=== PATIENT | male | born 1950 | race Caucasian/White ===

== ENCOUNTER → 2017-04-13 12:27 | Outpatient (CLI) | payer MEDICAID ==
[2015-03-11 12:51] VITALS: BMI 35.2
[~2017-04-13 12:27] MED LIST: AMBIEN10 MG PO; BAYER CHEWABLE81 MG PO; CARDIZEM CD180 MG PO; COLACE100 MG PO; COUMADIN5 MG PO; GABAPENTIN100 MG PO; HYDROCODON-ACE1 EAC7 PO; HYTRIN5 MG PO; OMEGA 3 FISH OI1 CAP PO; POTASSIUM CHLO10 ME1 PO; PREVACID15 MG PO; PRINIVIL10 MG PO; ROBAXIN500 MG PO; STERAPRED DS 1210 MG PO; TRIAMCINOLONE A17 GM NASAL; ZYLOPRIM100 MG PO
== END | disposition home or self-care (01) ==
LOC: D.MRI 12:27
DX: M25.572 Pain in left ankle and joints of left foot (principal)

== ENCOUNTER 2017-05-31 09:35 | Day surgery (SDC) | payer MEDICARE, OTHER ==
[~2017-05-31] VITALS: Ht 172.7 cm; Wt 106.8 kg
--- NOTE | ~2017-05-31 | OP ---
PATIENT NAME: MARY REBOLLAR MEDICAL RECORD: [id number] :54 LOCATION:[facility] ADMISSION DATE: SURGEON: HONEY MOTT DO DATE OF OPERATION: 05/31/2017 PROCEDURE: EGD with biopsies. INDICATIONS FOR PROCEDURE: Heartburn and dysphagia. SCOPE: Olympus video gastroscope. MEDICATIONS: Propofol 250 mg IV per anesthesia. ESTIMATED BLOOD LOSS: Minimal. COMPLICATIONS: None. FINDINGS: Informed consent was given. The patient was made comfortable with the above medication. After reaching an adequate level of sedation by slow IV push, the patient was placed on his left side. The endoscope was advanced under direct visualization through the mouth to the second portion of the duodenum. The hypopharynx and cricopharyngeus, upper, middle, and lower thirds of the esophagus appeared normal. At the GE junction, there were breaks in the Z-line consistent with LA class B reflux-induced esophagitis. In one of these breaks, there was a superficial linear esophageal ulcer without bleeding stigmata. Multiple cold forceps biopsies were taken from this site to rule out the presence of [place]'s esophagus. The endoscope was advanced beyond the GE junction into the stomach and retroflexed to view the cardia where a very small sliding hiatal hernia was present. The fundus and body of the stomach appeared normal. The endoscope was then unretroflexed and advanced down to the antrum and prepyloric region, which also appeared normal. Multiple cold forceps biopsies were taken to submit for histology and to rule out H pylori. The endoscope was advanced beyond the pylorus into the duodenum where the bulb and second portion of the duodenum appeared normal. The endoscope was then withdrawn from the patient. The patient tolerated the procedure well and there were no complications. IMPRESSION: 1. LA class B reflux-induced esophagitis. 2. A single superficial linear ulceration present at the GE junction, likely related to reflux. 3. Small sliding hiatal hernia. PLAN AND RECOMMENDATIONS: 1. Discharge home when recovery parameters are met. 2. Follow up biopsy specimen results. 3. Increase proton pump inhibitor therapy to 40 mg equivalent daily for 8 weeks regarding the ulceration. After this time, medication can be reduced down to 20 mg daily or to an H2 garfield for reflux. 4. Proceed with colonoscopy as scheduled. TRANSINT:[id number] Voice Confirmation ID: [id number] DOCUMENT ID: [id number] OPERATIVE REPORT [id number] MARY REBOLLAR NATHAN A DO CC: [id number] DICTATION DATE: 05/31/17 1242 SALON/SPA MANAGER: 05/31/17 1316 [facility] [address] [id number]
[2017-05-31 10:31] VITALS: BP 143/82; Ht 172.7 cm; Wt 106.8 kg
[2017-05-31 11:58] LABS: HEMATOCRIT 36.2 % (42.0-54.0); HEMOGLOBIN 12.5 g/dL (13.5-17.5); MCH 32.3 pg (26.0-34.0); MCHC 34.5 g/dL (31.0-37.0); MCV 93.5 fL (80.0-100.0); MEAN PLATELET VOLUME 8.6 fL (7.4-10.4); RBC 3.87 10x6/uL (4.20-6.10); RDW 12.5 % (11.5-14.5)
== END 2017-05-31 14:00 | disposition home or self-care (01) ==
LOC: D.OPS 09:35
PROVIDERS: Anesthesiology
DX: K29.50 Unspecified chronic gastritis without bleeding (principal); K21.0 Gastro-esophageal reflux disease with esophagitis; K44.9 Diaphragmatic hernia without obstruction or gangrene; K22.10 Ulcer of esophagus without bleeding; Z01.812 Encounter for preprocedural laboratory examination

== ENCOUNTER 2017-06-07 10:42 | Day surgery (SDC) | payer MEDICARE, OTHER ==
[~2017-06-07] VITALS: Ht 172.7 cm; Wt 104.5 kg
--- NOTE | ~2017-06-07 | OP ---
PATIENT NAME: MARY REBOLLAR MEDICAL RECORD: [id number] :54 LOCATION:[facility] ADMISSION DATE: SURGEON: HONEY MOTT DO DATE OF OPERATION: 06/07/2017 PROCEDURE: Colonoscopy with polypectomy. INDICATIONS FOR PROCEDURE: Constipation and lower abdominal pain. SCOPE: Olympus video pediatric colonoscope. MEDICATIONS: Propofol 550 mg IV per anesthesia. WITHDRAWAL TIME: 19 minutes. ESTIMATED BLOOD LOSS: Minimal. COMPLICATIONS: None. FINDINGS: Informed consent was given. The patient was made comfortable with the above medication. After reaching an adequate level of sedation by slow IV push, the patient was placed on his left side. A digital rectal examination was performed and was normal. The endoscope was then advanced under direct visualization through the rectum to the terminal ileum. The endoscope was slowly withdrawn and mucosa was carefully examined. The prep quality was good. In the ascending colon, there was a single polyp which was benign appearing and sessile and measuring approximately 7-8 mm in diameter. It was removed using hot snare in 1 piece and completely retrieved. In the transverse colon and descending colon, there were 2 more polyps which were benign-appearing and sessile. They both measured approximately 3-4 mm in diameter. They were both removed using hot forceps in 1 piece and completely retrieved. There was evidence of mild diverticulosis in a scattered fashion throughout difficult segments of the bowel. There was no evidence of diverticulitis associated with this. Retroflexion was performed in the rectum with visualization of prior intervention in the form of a hemorrhoidectomy. There were no internal hemorrhoids visualized on today's examination. The endoscope was then withdrawn from the patient. The patient tolerated the procedure well and there were no complications. IMPRESSION: 1. Three polyps as described above, removed using hot snare and hot forceps. 2. Mild diverticulosis involving different segments of the colon. PLAN AND RECOMMENDATIONS: 1. Discharge home when recovery parameters are met. 2. High fiber diet. 3. Supplement diet with Metamucil 1-2 tablespoons daily. 4. We will initiate prior authorization for Movant[employer] regarding the likely opioid-induced constipation. 5. Continue current medications. 6. Follow up biopsy specimen results. 7. Recall colonoscopy in 3 years. TRANSINT:[id number] Voice Confirmation ID: [id number] DOCUMENT ID: [id number] OPERATIVE REPORT [id number] MARY REBOLLARHONEY LAWTON DO at 0951 CC: [id number] DICTATION DATE: 06/07/17 1330 PUZZLE ASSEMBLER: 06/07/17 1420 [facility] 06/07/17 [id number] [place] [address]
[2017-06-07 11:42] VITALS: BP 146/87; Ht 172.7 cm; Wt 104.5 kg
[2017-06-07 11:51] LABS: HEMATOCRIT 37.5 % (42.0-54.0); HEMOGLOBIN 13.2 g/dL (13.5-17.5); MCH 32.7 pg (26.0-34.0); MCHC 35.2 g/dL (31.0-37.0); MCV 92.8 fL (80.0-100.0); MEAN PLATELET VOLUME 8.8 fL (7.4-10.4); RBC 4.04 10x6/uL (4.20-6.10); RDW 12.4 % (11.5-14.5); WBC 4.6 10x3/uL (4.8-10.8)
[2017-06-07 12:23] LABS: CALC OSMOLALITY 276 mosm/kg (275-300); CALCIUM 8.8 mg/dL (8.5-10.1); CARBON DIOXIDE 28.6 mmol/L (21.0-32.0); CHLORIDE - SERUM 100 mmol/L (98-107); CREATININE - SERUM 0.9 mg/dL (0.6-1.3); GLUCOSE 103 mg/dL (74-106); SODIUM 139 mmol/L (136-145); UREA NITROGEN 9 mg/dL (7-18); eGFR NON AFRICAN AMERICAN 90 mL/min (90-120)
== END 2017-06-07 14:48 | disposition home or self-care (01) ==
LOC: D.OPS 10:42
PROVIDERS: Anesthesiology
DX: R10.30 Lower abdominal pain, unspecified (principal); K59.00 Constipation, unspecified; D12.2 Benign neoplasm of ascending colon; D12.4 Benign neoplasm of descending colon; D12.3 Benign neoplasm of transverse colon; J45.909 Unspecified asthma, uncomplicated; I10 Essential (primary) hypertension; I48.91 Unspecified atrial fibrillation; K21.9 Gastro-esophageal reflux disease without esophagitis; J44.9 Chronic obstructive pulmonary disease, unspecified; G47.30 Sleep apnea, unspecified; Z01.812 Encounter for preprocedural laboratory examination

== ENCOUNTER 2017-06-23 09:00 | Day surgery (SDC) | payer MEDICARE, OTHER ==
[2017-06-22 14:38] LABS: HEMATOCRIT 37.7 % (42.0-54.0); HEMOGLOBIN 13.1 g/dL (13.5-17.5); MCH 32.4 pg (26.0-34.0); MCHC 34.7 g/dL (31.0-37.0); MCV 93.3 fL (80.0-100.0); MEAN PLATELET VOLUME 8.9 fL (7.4-10.4); RBC 4.04 10x6/uL (4.20-6.10); WBC 8.1 10x3/uL (4.8-10.8)
--- NOTE | ~2017-06-23 | OP ---
PATIENT NAME: MARY REBOLLAR MEDICAL RECORD: [id number] :54 LOCATION:[facility] ADMISSION DATE: SURGEON: JENNY BOYD DPM DATE OF OPERATION: 06/23/2017 PREOPERATIVE DIAGNOSES: 1. Arthritis, left ankle. 2. Rupture left ATF. 3. Possible rupture CF ligament. POSTOPERATIVE DIAGNOSES: 1. Arthritis of left ankle. 2. Rupture ATF. 3. Bone fragment, lateral anterior gutter. PROCEDURES: 1. Left ankle scope. 2. Left ATF repair with bone fragment removal. ANESTHESIA: Preoperative popliteal block per the anesthesia department as well as general anesthesia intraoperatively. HEMOSTASIS: Left thigh tourniquet at 350 mmHg. PREOPERATIVE DETAILS: The patient was taken to the OR, placed on the operating table in supine position, this was followed by induction of general anesthesia. The left extremity was then prepped and draped in the usual aseptic technique followed by exsanguination and inflation of tourniquet. A 15-blade was used to create 2 small stab incisions on the anterior lateral and anterior medial aspect of the left ankle. The incision was deepened down bluntly with a blunt hemostat. The blunt trocar and cannula were then introduced in the lateral portal with the camera being introduced into that portal. Initial inspection showed significant chondromalacia of the anterior distal tibia as well as arthritis of the talar dome as well as spurring on the anterior medial aspect of the cartilaginous surface on the talus. There was also noted to be significant capsulitis and synovitis and synovial shaver was introduced in the medial portal where debridement was performed, which was extensive, both of capsular as well as chondromalacial tissue as well as the resection of the bone spur on the anterior medial aspect of the talar dome, just anterior to the cartilaginous surface, the portals were switched introducing the camera medial and the synovial shaver laterally, continued extensive debridement was performed. The AITF ligament was intact. The ATF ligament was not, it was inspected in the lateral gutter, also the ankle was put into inversion stress which did not show any talar tilt indicating the CF ligament was intact. The scope and camera equipment were then removed. PROCEDURE #2 ATF repair with a modified Brostrom and bone fragment removal in the lateral gutter. The lateral stab incision over the anterolateral aspect of the ankle was lengthened distal and hockey J-shape wrapping around the contour of the fibula. The incision deepened down through subcutaneous tissue being sure to avoid all vital structures. The joint capsule was then punctured and incised. The ATF ligament was inspected, which was very frayed. There was also noted to be a large fragment on the anterior aspect of the fibula, which was excised, it measured approximately 1 cm in diameter. At this time, utilizing the Arthrex internal brace technique, the ligament was recreated. Following OPERATIVE REPORT [id number] MARY REBOLLAR that there was excellent range of motion of the joint, instability of the joint itself. This was followed by performance of a modified Brostrom technique utilizing the extensor retinaculum. The wound was flushed. The subcutaneous tissue was repaired with 4-0 Rapide and the skin was closed with 4-0 Rapide in a subcuticular technique followed by Dermabond. The incision on the anterior medial aspect of the ankle was also closed with 4-0 Rapide in a simple interrupted technique followed by Dermabond, Adaptic, 4 x 4 and Conform were used to dress the wound followed by application of a modified [place] compression dressing. Tourniquet was deflated. POSTOPERATIVE DETAILS: The patient tolerated the procedure well and left the OR with vital signs stable and vascular status. The patient was transported to recovery per anesthesia in stable condition. TRANSINT:[id number] Voice Confirmation ID: [id number] DOCUMENT ID: [id number] JENNY BOYD DPM at 1007 CC: [id number] DICTATION DATE: 06/23/17 1420 BANK NOTE DESIGNER: 06/23/17 1458 [facility] 06/23/17 [facility] [address] [place] [address]
[~2017-06-23 09:00] MED LIST changes: -CARDIZEM CD180 MG PO; +CARDIZEM CD360 MG PO; -GABAPENTIN100 MG PO; +HCTZ25 MG PO; +HYDROCODONE-APA1 TAB PO; +KRILL OIL PO; +NEURONTIN600 MG PO; +NIASPAN500 MG PO; +POTASSIUM99 M1 PO; +PROAIR HFA8.5 GM INH; +PROSTA-STRONG; +PROTONIX40 MG PO; +ROBAXIN-750750 MG PO
[2017-06-23 10:30] VITALS: BP 122/71; BMI 35.5
== END 2017-06-23 17:00 | disposition home or self-care (01) ==
LOC: D.OPS 09:00 → D.PAN 11:00 → D.OPS 11:00
PROVIDERS: Anesthesiology
DX: M13.872 Other specified arthritis, left ankle and foot (principal); S93.492A Sprain of other ligament of left ankle, initial encounter; X58.XXXA Exposure to other specified factors, initial encounter; M24.072 Loose body in left ankle; Z01.812 Encounter for preprocedural laboratory examination

== ENCOUNTER → 2018-01-14 13:59 | Outpatient (CLI) | payer MEDICARE, OTHER | END | disposition home or self-care (01) | LOC: D.CT 13:59 | DX: R10.9 Unspecified abdominal pain (principal) ==

== ENCOUNTER → 2019-02-10 09:52 | Outpatient (CLI) | payer MEDICARE, OTHER ==
[~2019-02-10 09:52] MED LIST changes: +FAMVIR500 MG PO; +MEDROL DOSE PACK4 MG PO; +OMNICEF300 MG PO; +PROVENTIL/2.5 MG/3 M INH
--- NOTE | 2019-02-14 15:54 | EC ---
PATIENT:MARY REBOLLAR DATE OF SERVICE: 02/10/19 SEX: M MEDICAL RECORD: [id number] DATE OF : 54 [facility]ATION[facility] AGE OF PATIENT: 68 ADMISSION DATE: 02/10/19 REFERRING PHYSICIAN: INTERPRETING PHYSICIAN: LYN DAY MD ECHOCARDIOGRAM REPORT ECHO CHARGES 4 ECHO COMPLETE Date: 02/10/19 CLINICAL DIAGNOSIS: A-FIB H/O HTN ECHOCARDIOGRAPHIC MEASUREMENTS (adult normal given) AC root (d.<3.7cm) 3.2 cm LV Septum d (<1.2 cm> 1.2 cm Valve Excursion 1.9 cm LV Septum (systole) 1.5 cm Left Atria (s.<4.0cm> 3.7 cm LVPW d(<1.2cm) 0.9 cm RV (d.<2.3cm) 3.1 cm LVPW (sytole) 1.1 cm LV diastole(<5.6CM) 5.8 cm MV E-F(>70mm/sec) cm LV systole 4.5 cm LVOT Diameter 1.7 cm MV exc.(>10mm) cm Est.ejection fraction (50-75%) % DOPPLER: LVIT cm/sec A 61.0 cm/sec E 138 cm/sec LA cm/sec RVSP 38.2 mmHg LVOT 123 cm/sec AOP1/2T m/s Asc. Ao 253 cm/sec RVOT 63.0 cm/sec RA cm/sec PA 121 cm/sec AV Gradient Peak 26.0 mmHg AV Mean 13.0 mmHg AV Area 1.1 cm MV Gradient Peak 6.7 mmHg MV Mean 2.0 mmHg MV Area cm COMMENTS: OP - HC Consumer Loan Specialist: 1 CHARLY LAVERN Cargo Mate: 3 Dr. Arevalo TAPE# PACS Pericardial Effusion N DATE OF SERVICE: Adequate 2D, color flow imaging, spectral Doppler, and M-Mode No LVH. LV internal dimension is normal. Wall motion is normal. EF is greater than or equal to 55%. Aortic valve is tricuspid. No evidence of stenosis by Doppler interrogation. Left atrium is normal at 3.7 cm. Mitral valve shows no prolapse. Trace MR. Right-sided chambers are grossly normal. Trace TR. TRANSINT:[id number] Voice Confirmation ID: [id number] DOCUMENT ID: [id number] ECHOCARDIOGRAM REPORT [id number] MARY REBOLLAR GREGORY A MD at 1554 CC: [id number] DICTATION DATE: 02/14/19 1325 SAND BLASTER: 02/14/19 1352 [facility] CLI 02/10/19 [id number] [place] [address]
== END | disposition home or self-care (01) ==
LOC: D.HCCECHO 01-30 09:00
PROVIDERS: ATTEND Internal Medicine Interventional Cardiology
DX: I48.91 Unspecified atrial fibrillation (principal); I67.9 Cerebrovascular disease, unspecified

== ENCOUNTER 2019-03-19 13:59 | Emergency (ER) | payer MEDICARE, OTHER ==
[~2019-03-19] VITALS: Ht 172.7 cm; Wt 109.1 kg
[~2019-03-19 13:59] MED LIST changes: -FAMVIR500 MG PO; -MEDROL DOSE PACK4 MG PO; -OMNICEF300 MG PO; -PROVENTIL/2.5 MG/3 M INH
[2019-03-19 14:08] VITALS: Ht 172.7 cm; Wt 109.1 kg
[2019-03-19] MEDS ORDERED: OMNICEF300 MG PO (14:11)
[2019-03-19] MEDS ORDERED: PROVENTIL/2.5 MG/3 M INH (14:12)
[2019-03-19 15:09] LABS: BASOPHILS 0.2 % (0-2); EOSINOPHILS 1.6 % (0-7); HEMATOCRIT 34.5 % (42.0-54.0); HEMOGLOBIN 11.6 g/dL (13.5-17.5); IMMATURE GRANULOCYTES 0.2 % (0-5); MCHC 33.6 g/dL (31.0-37.0); MEAN PLATELET VOLUME 9.1 fL (7.4-10.4); RBC 3.52 10x6/uL (4.20-6.10); RDW 12.6 % (11.5-14.5); WBC 8.1 10x3/uL (4.8-10.8)
[2019-03-19 15:15] VITALS: BP 146/82
[2019-03-19 15:22] LABS: PLATELET COUNT 359 10x3/uL (130-400)
[2019-03-19 15:26] LABS: CALC OSMOLALITY 278 mosm/kg (275-300); CHLORIDE - SERUM 102 mmol/L (98-107); CREATININE - SERUM 0.7 mg/dL (0.6-1.3); GLUCOSE 104 mg/dL (74-106); POTASSIUM - SERUM 4.6 mmol/L (3.5-5.1); SODIUM 139 mmol/L (136-145); UREA NITROGEN 14 mg/dL (7-18); eGFR NON AFRICAN AMERICAN > 90 mL/min (90-120)
[2019-03-19 15:32] LABS: ALBUMIN 3.5 g/dL (3.4-5.0); ALKALINE PHOSPHATASE 64 U/L (46-116); ALT (SGPT) 51 U/L (10-68); BILIRUBIN - TOTAL 0.32 mg/dL (0.2-1.3); PROTEIN - SERUM 7.4 g/dL (6.4-8.2)
[2019-03-19] MEDS ORDERED: FAMVIR500 MG PO (16:33)
[2019-03-19] MEDS ORDERED: MEDROL DOSE PACK4 MG PO (16:33)
== END 2019-03-19 17:47 | disposition home or self-care (01) ==
LOC: D.ER 13:59
PROVIDERS: Emergency Medicine
DX: G51.0 Bell's palsy (principal); I11.9 Hypertensive heart disease without heart failure; I48.91 Unspecified atrial fibrillation; J44.9 Chronic obstructive pulmonary disease, unspecified; M54.9 Dorsalgia, unspecified; N40.0 Benign prostatic hyperplasia without lower urinary tract symptoms

== ENCOUNTER → 2019-11-17 07:52 | Outpatient (CLI) | payer MEDICARE, OTHER ==
[2019-03-19 14:08] VITALS: BMI 36.5
[~2019-11-17 07:52] MED LIST changes: +FAMVIR500 MG PO; +MEDROL DOSE PACK4 MG PO; +OMNICEF300 MG PO; +PROVENTIL/2.5 MG/3 M INH
== END | disposition home or self-care (01) ==
LOC: D.US 07:52
PROVIDERS: ATTEND Family Medicine
DX: R10.9 Unspecified abdominal pain (principal)

== ENCOUNTER → 2019-11-24 07:56 | Outpatient (CLI) | payer MEDICARE, OTHER ==
[2019-03-19 14:08] VITALS: BMI 36.5
--- NOTE | 2019-11-27 13:47 | EC ---
PATIENT:MARY REBOLLAR DATE OF SERVICE: 11/24/19 SEX: M MEDICAL RECORD: [id number] DATE OF : 54 LOCATION:[facility] AGE OF PATIENT: 69 ADMISSION DATE: 11/24/19 REFERRING PHYSICIAN: INTERPRETING PHYSICIAN: LYN DAY MD ECHOCARDIOGRAM REPORT ECHO CHARGES 4 ECHO COMPLETE Date: 11/24/19 CLINICAL DIAGNOSIS: HEART MURMUR ANGINA/AFIB/HTN ECHOCARDIOGRAPHIC MEASUREMENTS (adult normal given) AC root (d.<3.7cm) 3.4 cm LV Septum d (<1.2 cm> 1.3 cm Valve Excursion 1.4 cm LV Septum (systole) 1.6 cm Left Atria (s.<4.0cm> 4.8 cm LVPW d(<1.2cm) 1.5 cm RV (d.<2.3cm) 3.7 cm LVPW (sytole) 1.8 cm LV diastole(<5.6CM) 4.9 cm MV E-F(>70mm/sec) cm LV systole 2.9 cm LVOT Diameter 1.8 cm MV exc.(>10mm) 1.7 cm Est.ejection fraction (50-75%) % DOPPLER: LVIT cm/sec A 68.0 cm/sec E 108.0 cm/sec LA cm/sec RVSP 34 mmHg LVOT 114 cm/sec AOP1/2T m/s Asc. Ao 213 cm/sec RVOT 75 cm/sec RA cm/sec PA 123 cm/sec AV Gradient Peak 18.18mmHg AV Mean 9.46 mmHg AV Area 1.3 cm MV Gradient Peak 4.25 mmHg MV Mean 1.12 mmHg MV Area cm COMMENTS: Commissary Superintendent: 2 JAMISON NORMAN Yard Spotter: 3 Dr. Arevalo TAPE# PACS Pericardial Effusion N DATE OF SERVICE: Adequate 2-D, color-flow imaging, spectral Doppler, and M-mode. LVH is present. LV internal dimensions are normal. Wall motion is normal. EF is greater than or equal to 55%. Aortic valve is calcified with no restriction of leaflet motion. Peak gradient of 18 mmHg putting this in very mild range with mild AI present as well. Left atrium is dilated at 4.8 cm. Mitral valve shows no prolapse. Trace MR. Right-sided chambers are grossly normal. Mild TR. ECHOCARDIOGRAM REPORT [id number] MARY REBOLLAR TRANSINT:[id number] Voice Confirmation ID: [id number] DOCUMENT ID: [id number] LYN DAY MD at 1347 CC: [id number] DICTATION DATE: 11/24/19 1339 LAMINATION MACHINE OPERATOR: 11/24/19 2333 DEP CLI 11/24/19 [address] [address] [id number]
== END | disposition home or self-care (01) ==
LOC: D.HCCECHO 07:56
PROVIDERS: ATTEND Internal Medicine Cardiovascular Disease
DX: I25.119 Atherosclerotic heart disease of native coronary artery with unspecified angina pectoris (principal)

== ENCOUNTER → 2019-12-01 07:12 | Outpatient (CLI) | payer MEDICARE, OTHER ==
[2019-03-19 14:08] VITALS: BMI 36.5
== END | disposition home or self-care (01) ==
LOC: D.NM 07:12
PROVIDERS: ATTEND Family Medicine
DX: R10.9 Unspecified abdominal pain (principal)

== ENCOUNTER 2019-12-06 07:01 | Day surgery (SDC) | payer MEDICARE, OTHER ==
[~2019-12-06] VITALS: Ht 172.7 cm; Wt 106.6 kg
--- NOTE | ~2019-12-06 | HEMODYNAMI ---
PATIENT:MARY REBOLLAR MEDICAL RECORD: [id number] : 54 LOCATION:DAnthonyCAT ADMISSION DATE: 12/06/19 Generatedon:12/06/20199:35 Patient name: MARY REBOLLAR Patient #: [id number] SSN: [id number] : 1950 Date of study: 12/06/2019 Page: Of Hemodynamic Procedure Report Patient Data Patient Demographics Procedure consent was obtained First Name: MARY Gender: Male Last Name: SMOOTH : 1950 Middle Initial: A Age: 69 year(s) Patient #: [id number] Race: SSN: [id number] Additional ID: [id number] Contact details [address]: [address] [place] [address] rd State: [place] City: [place] Zip code: [address] Past Medical History Allergies Allergen Reaction Date Comments Reported Other allergy 12/06/2019 DARVON, PCN, MOLDS Admission Admission Data Admission Date: 12/06/2019 Admission Time: 7:01 Arrival Date: 12/06/2019 Arrival Time: 0:00 Admit Source: Other Insurance Payor: Medicare [facility] #: [id number] Height (in.): 68.11 BSA: 2.2 (m2) Height (cm.): 173 BMI: 35.75 (kg/m2) Weight (lbs.): 235.9 Weight (kg.): 107 Lab Results Lab Result Date: 12/06/2019 Lab Result Time: 0:00 Biochemistry Name Units Result Min Max BUN mg/dl 12 --(-*--)-- 7 18 Creatinine mg/dl 1 --(--*-)-- 0.6 1.3 eGFR ml/min 79.62607 *-(----)-- 90 120 NONAFRICAN CBC Name Units Result Min Max Hematocrit % 37.6 *-(----)-- 42 54 Hemoglobin g/dl 12.9 -*(----)-- 13.5 17.5 Procedure Procedure Types Cath Procedure Diagnostic Procedure [facility] w/Coronaries FFR/IVUS FFR Initial Sedation Charges Moderate Sedation up to 15 minutes PCI Procedure Hemochron ACT Test Procedure Description Procedure Date Procedure Date: 12/06/2019 Procedure Start Time: 9:15 Procedure End Time: 9:32 Procedure Staff Name Function Rodri Stout MD Performing Physician Laurie Abdi RT Scrub Romy Zepeda RT Monitor Blanca Knott RN Nurse Procedure Data Cath Procedure Fluoroscopy Diagnostic fluoroscopy Total fluoroscopy Time: 2.6 time: 2.6 min min Diagnostic fluoroscopy Total fluoroscopy dose: 571 dose: 571 mGy mGy Contrast Material Contrast Material Type Amount (ml) Isovue 300 77 Entry Location Entry Primary Successful Side Size Upsize Upsize Entry Closure Succes sful Closure Location (Fr) 1 (Fr) 2 (Fr) Remarks Device Remarks Femoral Right 5 Fr Exoseal artery Estimated blood loss: 5 ml Diagnostic catheters Device Type Used For End Catheter Placement MULTIPACK JL 4.0 5Fr Left Coronary catheter Angiography MULTIPACK 3DRC 5Fr Right Coronary catheter Angiography MULTIPACK Pigtail 5 Fr LV Angiography catheter Procedure Complications No complications Procedure Medications Medication Administration Route Dosage 0.9% NaCl I.V. 100 ml/hr Oxygen etCO2 Nasal cannula 2 l/min Lidocaine 2% added to field 20 Heparin Flush Bag added to field 2 bags (1000units/500ml NS) Versed I.V. 2 mg Fentanyl I.V. 50 mcg Versed I.V. 2 mg Fentanyl I.V. 50 mcg Fentanyl I.V. 50 mcg Heparin Bolus I.V. 2000 units Hemodynamics Rest BSA: 2.2 (m2) HGB: 12.9 (g/dl) O2 Consumption: Estimated: 256.58 (ml/min) O2 Con sumption indexed: Estimated:116.63 (ml/min/m) Heart Rate: 71 (bpm) Pressure Samples Time Site Value (mmHg) Purpose Heart Use Rate(bpm) 9:20 LV 124/16,20 Snapshot 63 9:20 LV 124/18,21 Snapshot 63 9:21 AO 107/69(91) Pullback 68 Gradients Valve Time Site Site 2 Mean SEP/DFP Peak To Heart Use 1 (mmHg) (sec/min) Peak Rate (mmHg) (bpm) Aortic 9:21 LV AO 14 18 68 107/69(91) Calculations Valve P-P Mean Valve Index Valve Source Name Gradient Area Flow (cm2) Aortic 14 14 Snapshots Pre Cath Intra NCS Post Cath Vital Signs Time Heart Resp SPO2 etCO2 NIBP Rhythm Pain Sedation Rate (ipm) (%) (mmHg) (mmHg) Status Level (bpm) 8:58:43 69 13 98 26.2 121/60(87) NSR 0 (11) 10(A) , No pain 9:03:10 66 14 96 10.4 113/71(86) NSR 0 (11) 10(A) , No pain 9:07:36 60 20 96 10.4 107/63(80) NSR 0 (11) 10(A) , No pain 9:12:02 59 23 97 10 108/55(85) SB 0 (11) 10(A) , No pain 9:17:01 66 12 97 38.2 Measuring NSR 0 (11) 10(A) , No pain 9:17:32 60 15 97 43.5 129/69(89) NSR 0 (11) 10(A) , No pain 9:22:00 60 10 96 34 125/71(90) NSR 0 (11) 9(A) , No pain 9:26:27 60 10 97 8.9 126/71(92) NSR 0 (11) 10(A) , No pain 9:30:57 62 12 97 38.2 127/72(93) NSR 0 (11) 10(A) , No pain Medications Time Medication Route Dose Verified Delivered Reason Notes Effectiveness by by 8:57:40 0.9% NaCl I.V. 100 Rodri Rios used for ml/hr [facility] Knott procedure MD ATWOOD 8:57:49 Oxygen etCO2 2 Rodri Rios used for Nasal l/min [facility] Knott procedure cannula MD ATWOOD 8:57:54 Lidocaine 2% added 20ml Rodri Mace for local to vial [facility] anesthetic field MD MANZO 8:57:57 Heparin Flush added 2 Rodri Mace used for Bag to bags ArgeliaEverton Stout procedure (1000units/500ml field MD MANZO NS) 9:06:16 Versed I.V. 2 mg Rodri Rodrigueza for sedation [facility] Knott MD RN 9:06:28 Fentanyl I.V. 50 Rodri Rodrigueza for sedation mcg [facility] Knott MD RN 9:11:36 Versed I.V. 2 mg Rodri Rios for sedation [facility] Knott MD RN 9:11:40 Fentanyl I.V. 50 Rodri Rodrigueza for sedation mcg [facility] Knott MD RN 9:16:33 Fentanyl I.V. 50 Rodri Rodrigueza for sedation mcg [facility] Knott MD RN 9:21:48 Heparin Bolus I.V. 2000 Rodri Rios for verifi ed units [facility] Knott anticoagulation with Dr. MD RAI Arevalo Procedure Log Time Note 7:57:42 Informed consent obtained and on chart 7:58:22 Diagnostic Cath Status : Elective 7:58:47 Arrival Date: 12/06/2019 12:00:00 AM 7:58:48 Admit Source: Other 7:58:54 Insurance Payor : Medicare 8:03:31 Procedure Status Elective Heart Cath (OP). 8:03:33 Time tracking: Regular hours (M-F 7:00 - 5:00) 8:03:38 Plan of Care:Hemodynamics will remain stable., Cardiac rhythm will remain stable., Comfort level will be maintained., Respiratory function will remain adequate., Patient/ family verbilizes understanding of procedure., Procedure tolerated without complication., Recovers from procedure without complications.. 8:03:50 H&P Date Dictated: 11/13/2019 Within 30 days and on chart.. 8:03:52 Pre-procedure instructions explained to patient. 8:03:52 Pre-op teaching completed and patient verbalized understanding. 8:03:59 Family unavailable. 8:04:00 Patient NPO since Midnight. 8:04:20 Patient allergic to Other allergyDARVON, PCN, MOLDS 8:04:25 Alarms reviewed by R. N. 8:04:26 Sharps counted by scrub and verified by R.N. 8:46:32 Lab Result : Creatinine 1 mg/dl 8:46:32 Lab Result : BUN 12 mg/dl 8:46:32 Lab Result : eGFR NONAFRICAN 79.34064 ml/min 8:46:32 Lab Result : Hemoglobin 12.9 g/dl 8:46:32 Lab Result : Hematocrit 37.6 % 8:47:54 Romy MENA(R) (CV) sent for patient. Start room use. 8:51:41 Patient received from Pre/Post Procedure Room to CCL 1 Alert and oriented. Tansferred to table in Supine position. 8:51:42 Warm blankets applied, and carlos hugger turned on for patient comfort. 8:51:43 Correct patient and procedure confirmed by team. 8:51:44 ECG and BP/O2 sat monitors applied to patient. 8:57:13 Vital chart was started 8:57:40 0.9% NaCl 100 ml/hr I.V. was administered by Blanca Knott RN; used for procedure; Verbal order read back and verified. 8:57:41 Baseline sample Acquired. 8:57:49 Oxygen 2 l/min etCO2 Nasal cannula was administered by Blanca Knott RN; used for procedure; Verbal order read back and verified. 8:57:54 Lidocaine 2% 20ml vial added to field was administered by Rodri Stout MD; for local anesthetic; Verbal order read back and verified. 8:57:55 Baseline sample Acquired. 8:57:57 Heparin Flush Bag (1000units/500ml NS) 2 bags added to field was administered by Rodri Stout MD; used for procedure; Verbal order read back and verified. 8:58:05 Rhythm: sinus rhythm 8:58:07 Full Disclosure recording started 8:58:15 Is the patient allergic to Iodine/contrast media? No. 8:58:58 Use device set Femoral Dx 8:59:00 ACIST Syringe (75211) opened to sterile field. 8:59:00 Bag Decanter (2001S) opened to sterile field. 8:59:01 Medline Cath Pack ([id number]) opened to sterile field. 8:59:03 ACIST Hand Control (32929) opened to sterile field. 8:59:04 ACIST Manifold (62240) opened to sterile field. 8:59:05 DIAGNOSTIC Multipack 5Fr catheter set ([id number]) opened to sterile field. 8:59:06 Tegaderm 4 x 4 (1626W) opened to sterile field. 8:59:09 EMERALD Guide Wire (617-294) opened to sterile field. 8:59:10 SHEATH 5FR Hull (AGO799) opened to sterile field. 8:59:40 Is patient on blood thinner?No 8:59:44 Patient diabetic? No. 8:59:47 ----Pre-sedation anethsthesia assessment.---- 8:59:51 Previous problem with sedation/anesthesia? No ? 8:59:54 Snore? Yes 8:59:56 Sleep apnea? Yes 9:00:00 Deviated septum? No 9:00:01 Opens mouth fully? Yes 9:00:02 Sticks out tongue? Yes 9:00:15 Airway obstruction? Yes ASTHMA 9:00:48 Dentures? No ? 9:00:54 Pre procedure: right dorsailis pedis pulse 1+ Palpable, but thready & weak; easily obliterated 9:01:03 IV patent on arrival in right antecubital with 0.9% NaCl at [facility]. 9:04:47 Right groin area was prepped with chlora-prep and draped in sterile fashion 9:04:54 Physician arrived 9:04:55 --------ALL STOP TIME OUT------ 9:04:56 Final Timeout: patient, procedure, and site verified with staff and physician. All members of the team are in agreement. 9:04:59 Right groin site verified by team. 9:05:06 Fire Safety Assessment: A--An alcohol-based skin anteseptic being used preoperatively., C--Open oxygen or nitrous oxide is being used., D--An ESU, laser, or fiber-optic light is being used. 9:05:11 Physical assessment completed. ASA score P 2 - A patient with mild systemic disease as per Rodri Stout MD. 9:05:18 2) 60-89 Mildly reduced kidney function, and other findings (as for stage 1) point to kidney disease. 9:05:23 Maximum allowable contrast dose (3.7 X eGFR X 0.75)219 ml. 9:05:32 Sedation plan: IV Moderate Sedation Medication:Versed, Fentanyl 9:06:16 Versed 2 mg I.V. was administered by Blanca Knott RN; for sedation; Verbal order read back and verified. 9:06:22 Stress Test: yes; abnormal INFERIOR AND APICAL 9:06:28 Fentanyl 50 mcg I.V. was administered by Blanca Knott RN; for sedation; Verbal order read back and verified. 9:06:42 Lab results completed and on chart. 9:11:36 Versed 2 mg I.V. was administered by Blanca Knott RN; for sedation; Verbal order read back and verified. 9:11:40 Fentanyl 50 mcg I.V. was administered by Blanca Knott RN; for sedation; Verbal order read back and verified. 9:12:10 Zero performed for pressure channel P1 9:15:09 Zero performed for pressure channel P1 9:15:25 Procedure started. 9:15:31 Local anesthetic to right femoral artery with Lidocaine 2% by Rodri Stout MD.INITIAL ACCESS ONLY 9:15:58 A 5 Fr sheath was inserted into the Right Femoral artery 9:16:18 Risk of Mortality: 0.3 9:16:23 Risk of blood transfusion: 0.1 9:16:27 Risk of LISA: 0.5 9:16:33 Fentanyl 50 mcg I.V. was administered by Blanca Knott RN; for sedation; Verbal order read back and verified. 9:16:40 A MULTIPACK JL 4.0 5Fr catheter was advanced over the wire and used for Left Coronary Angiography. 9:16:53 Patient Height : 68.11 inches 9:16:57 Patient Weight : 235.9 lbs 9:17:47 LCA angiography performed. 9:18:05 Injector settings: Ml/sec: 3, Volume: 6, 9:18:25 Catheter removed. 9:18:34 A MULTIPACK 3DRC 5Fr catheter was advanced over the wire and used for Right Coronary Angiography. 9:19:43 RCA angiography performed. 9:19:50 Injector settings: Ml/sec: 3, Volume: 6, 9:19:53 Catheter removed. 9:20:40 A MULTIPACK Pigtail 5 Fr catheter was advanced over the wire and used for LV Angiography. 9:21:12 LV hemodynamics recorded. 9:21:19 EF : 55 % 9:21:23 LV gram done using BYRNES 9:21:27 Catheter removed. 9:21:33 Proceeding to intervention. 9:21:48 Heparin Bolus 2000 units I.V. was administered by Blanca Knott RN; for anticoagulation; verified with Dr. Arevalo Verbal order read back and verified. 9:22:06 Daniel Verrata Plus pressure wire (50117C) opened to sterile field. 9:23:31 THE JL 4.0 IS REINSERTED TO USE THE IFR WIRE. 9:25:04 FFR/IFR wire advanced. 9:26:35 mLAD lesion measured at 1.01 with IFR 9:27:00 EXOSEAL 5Fr (EX500) opened to sterile field. 9:27:17 Catheter removed. 9:27:30 Wire removed. 9::57 Sheath removed intact; hemostasis achieved with Exoseal to the Right Femoral artery. 9:28:12 Procedure ended.(Physican Out) 9:28:31 Contrast amount:Isovue 300 77ml. 9::41 Fluoroscopy time 02.60 minutes. 9::47 Fluoroscopy dose: 571 mGy 9::47 Flurop Dose total: 571 9:: Dose Area Product 72690 mGy/cm. 9:29:05 Maximum allowable dose exceeded? No. 9:29:09 Sharps counted by scrub and verified by R.N. 9:29:12 Insertion/operative site no bleeding no hematoma. 9:29:17 Post-op/insertion site Right Femoral artery dressed using a 4 x 4 and Tegaderm. 9:29:23 Post-procedure physical assessment completed. ASA score P 2 - A patient with mild systemic disease as per Rodri Stout MD. 9:29:27 Post procedure rhythm: unchanged. 9:29:36 Estimated blood loss: 5 ml 9::41 Post procedure instruction explained to patient.Patient verbalizes understanding. 9:30:02 Patient needs reinforcement of post procedure teaching. 9:30:32 ACT drawn and resulted at 154 seconds. (normal therapeutic range 180-240 seconds). 9:31:03 Procedure type changed to Cath procedure, Diagnostic procedure, C, [facility] w/Coronaries, FFR/IVUS, FFR Initial, Sedation Charges, Moderate Sedation up to 15 minutes, PCI procedure, Hemochron ACT Test 9:31:07 Procedure and supply charges have been captured, reviewed, submitted and are correct. 9:31:45 Procedure Complication : No complications 9:31:50 Vital chart was stopped 9:31:55 [facility] Findings: mild to moderate CAD (<70%) 9:31:57 Operative report dictated upon procedure completion. 9:31:58 See physician's report for complete and final results. 9:32:01 Report given to Pre/Post Procedure Room. 9:32:06 Patient transfered to Pre/Post Procedure Room with Stretcher. 9:32:09 Procedure ended. 9:32:09 Full Disclosure recording stopped 9:32:19 End room use (Document Last) 9:32:50 End room use (Document Last) Device Usage Item Name Manufacture Quantity Catalog Hospital Part Current Minima l Lot# / Number Charge Number Stock Stock Serial# Code ACIST Acist 1 88043 [id number] 893465 [id number] 20 Syringe Medical (57858) Systems Inc Bag Microtek 1 015222 82135 996191 5 Decanter Medical Inc. () Medline Medline 1 [id number] 106048 12958 741091 5 Cath Pack ([id number]) ACIST Hand Acist 1 81142 866951 457734 977275 5 Control Medical (19750) Systems Inc ACIST Acist 1 84158 855552 429023 464875 5 Manifold Medical (93469) Systems Inc DIAGNOSTIC Cardinal 1 OM8186 906329 14369 558010 30 Multipack Health 5Fr catheter set (MR3307) Tegaderm 4 3M 1 1626W 063669 331502 854852 5 x 4 (1626W) EMERALD Cardinal 1 502-455 584017 777407 670546 5 Guide Wire Health (502-455) SHEATH 5FR Terumo 1 GVA329 415446 046987 531308 5 Hull (LID519) MULTIPACK Cardinal 1 569987 5 JL 4.0 5Fr Health catheter MULTIPACK Cardinal 1 342985 5 3DRC 5Fr Health catheter MULTIPACK Cardinal 1 509502 5 Pigtail 5 Health Fr catheter Daniel Daniel 1 92400H 838323 870905399 297070 5 Verrata Plus pressure wire (96902S) EXOSEAL 5Fr Cardinal 1 EX500 693901 403301 922685 10 (EX500) Health Signature Audit [place] Stage Time Signature Unsigned Intra-Procedure 12/06/2019 Romy 9:32:50 AM Katelyn RT(R) (CV) Intra-Procedure 12/06/2019 Blanca Knott 9:33:40 AM RN Intra-Procedure 12/06/2019 Rodri Kuo 9:35:54 AM Everton MANZO [address] [place] [address]
[2019-12-06] MEDS ORDERED: NEURONTIN800 MG PO (07:37)
[2019-12-06] MEDS ORDERED: CARDIZEM30 MG PO (07:38)
[2019-12-06] MEDS ORDERED: ZESTRIL40 MG PO (07:38)
[2019-12-06] MEDS ORDERED: PEPCID AC20 MG PO ×2 (07:40→07:43)
[2019-12-06] MEDS ORDERED: LASIX20 MG PO (07:40)
[2019-12-06] MEDS ORDERED: ZOFRAN4 MG PO (07:41)
[2019-12-06 08:04] VITALS: BP 126/65; Ht 172.7 cm; Wt 106.6 kg
[2019-12-06 08:33] LABS: ALT (SGPT) 34 U/L (10-68); CALC OSMOLALITY 276 mosm/kg (275-300); CALCIUM 9.1 mg/dL (8.5-10.1); CARBON DIOXIDE 30.8 mmol/L (21.0-32.0); CHLORIDE - SERUM 102 mmol/L (98-107); CHOL - HDL RATIO 4.4 ratio (2.3-4.9); CHOLESTEROL, TOTAL 201 mg/dL (0-200); GLUCOSE 113 mg/dL (74-106); HDL CHOLESTEROL 46 mg/dL (32-96); LDL CHOLESTEROL 134 mg/dL (0-100); LDL-HDL RATIO 2.9 ratio (1.5-3.5); SODIUM 138 mmol/L (136-145); TRIGLYCERIDE 108 mg/dL (30-200); UREA NITROGEN 12 mg/dL (7-18); eGFR NON AFRICAN AMERICAN 79 mL/min (90-120)
[2019-12-06 08:42] LABS: BASOPHILS 0.4 % (0-2); HEMATOCRIT 37.6 % (42.0-54.0); HEMOGLOBIN 12.9 g/dL (13.5-17.5); IMMATURE GRANULOCYTES 0.2 % (0-5); LYMPHOCYTES 15.1 % (15-50); MCH 32.7 pg (26.0-34.0); MCHC 34.3 g/dL (31.0-37.0); MCV 95.4 fL (80.0-100.0); MEAN PLATELET VOLUME 8.9 fL (7.4-10.4); MONOCYTES 11.7 % (2-11); NEUTROPHILS 70.6 % (40-80); RBC 3.94 10x6/uL (4.20-6.10); RDW 12.3 % (11.5-14.5); WBC 5.4 10x3/uL (4.8-10.8)
[2019-12-06 08:43] LABS: PLATELET COUNT 253 10x3/uL (130-400)
--- NOTE | 2019-12-06 09:44 | NUR ---
PT ARRIVED BY STRETCHER. PLACED ON MONITORS. ASSESSMENT COMPLETED. VSS AT THIS TIME. FAMILY AT BEDSIDE. CALL LIGHT WITHIN REACH.
--- NOTE | 2019-12-06 10:00 | NUR ---
RIGHT GROIN DRESSING C/D/I NO S/S OF HEMATOMA NOTED. CALL LIGHT WITHIN REACH
--- NOTE | 2019-12-06 10:30 | NUR ---
RIGHT GROIN DRESSING C/D/I. NO S/S OF HEMATOMA NOTED. CALL LIGHT WITHIN REACH. VSS AT THIS TIME. FAMILY AT BEDSIDE.
--- NOTE | 2019-12-06 10:45 | NUR ---
RIGHT GROIN DRESSING C/D/I. NO S/S OF HEMATOMA NOTED. RIGHT PEDAL PULSE PRESENT. PT DENIES NAUSEA. HEAD OF BED INC TO 30 DEGREES. TOLERATED WELL. VSS AT THIS TIME. SET UP WITH SANDWICH TRAY AND DRINK AT THIS TIME.
--- NOTE | 2019-12-06 11:29 | NUR ---
RIGHT GROIN DRESSING C/D/I. NO S/S OF HEMATOMA NOTED. VSS. PIV D/C'D WITH CATH TIP INTACT. TOLERATED WELL. PT INSTRUCTED TO GET UP AND DRESSED AT THIS TIME. FAMILY AT BEDSIDE TO ASSIST. CALL LIGHT WITHIN REACH.
--- NOTE | 2019-12-06 11:35 | NUR ---
DISCUSSED DISCHARGE INSTRUCTIONS WITH PT AND PT'S FAMILY. THEY VOICED UNDERSTANDING. PT AMBULATED TO RESTROOM AND VOIDED WITHOUT DIFFICULTY. STEADY GAIT NOTED.
--- NOTE | 2019-12-06 11:40 | NUR ---
PT TAKEN DOWN TO VEHICLE BY WHEELCHAIR. NO S/S OF DISTRESS NOTED. ALL BELONGINGS AND PAPERWORK IN HAND.
--- NOTE | 2019-12-07 14:25 | OP ---
PATIENT NAME: MARY REBOLLAR MEDICAL RECORD: [id number] :54 LOCATION:D.CAT ADMISSION DATE: SURGEON: LYN DAY MD DATE OF OPERATION: 12/06/2019 PROCEDURE: Left heart catheterization, selective coronary angiography, plus IFR wire, right femoral artery approach. CATHETERS: A 5-[place] sheath, 5/4 left and right Vic, 5/4 pig. The procedure was well tolerated. The patient returned to the kellogg. Sheath removed. ExoSeal device placed. FINDINGS: Left ventriculography in 30-degree BYRNES view: Normal wall motion and normal systolic function. CORONARY ANATOMY: LEFT MAIN: Left main is free of disease. LAD: Has a questionable stenosis in its proximal third; however, IFR wire was normal at 1. CIRCUMFLEX: Free of disease. RIGHT CORONARY ARTERY: Free of disease. IMPRESSION: No significant coronary artery disease including via IFR wire. LV function remains normal. Continue medical management of risk factor modifications as well as no contraindication to upcoming surgery. TRANSINT:[id number] Voice Confirmation ID: [id number] DOCUMENT ID: [id number] LYN DAY MD at 1425 CC: [id number] DICTATION DATE: 12/06/19 0938 ELECTROPLATING SALES REPRESENTATIVE: 12/06/19 1347 [facility] 12/06/[address] [address]
== END 2019-12-06 11:40 | disposition home or self-care (01) ==
LOC: D.CATH 07:01
PROVIDERS: ATTEND Internal Medicine Interventional Cardiology
DX: I25.119 Atherosclerotic heart disease of native coronary artery with unspecified angina pectoris (principal); E78.5 Hyperlipidemia, unspecified; I10 Essential (primary) hypertension; K21.9 Gastro-esophageal reflux disease without esophagitis; R01.1 Cardiac murmur, unspecified; I48.91 Unspecified atrial fibrillation

== ENCOUNTER 2019-12-16 17:03 | Emergency (ER) | payer MEDICARE, OTHER ==
[~2019-12-16 17:03] MED LIST changes: +CARDIZEM30 MG PO; +LASIX20 MG PO; +NEURONTIN800 MG PO; +PEPCID AC20 MG PO; +ZESTRIL40 MG PO; +ZOFRAN4 MG PO
[2019-12-16 17:12] VITALS: Ht 172.7 cm
[2019-12-16 18:25] LABS: BASOPHILS 0.3 % (0-2); EOSINOPHILS 0.9 % (0-7); HEMATOCRIT 37.4 % (42.0-54.0); HEMOGLOBIN 12.8 g/dL (13.5-17.5); IMMATURE GRANULOCYTES 0.1 % (0-5); LYMPHOCYTES 14.1 % (15-50); MCHC 34.2 g/dL (31.0-37.0); MCV 96.4 fL (80.0-100.0); MEAN PLATELET VOLUME 8.4 fL (7.4-10.4); MONOCYTES 8.5 % (2-11); NEUTROPHILS 76.1 % (40-80); PLATELET COUNT 261 10x3/uL (130-400); RBC 3.88 10x6/uL (4.20-6.10); RDW 12.4 % (11.5-14.5); WBC 8.9 10x3/uL (4.8-10.8)
[2019-12-16 18:33] LABS: CALCIUM 9.4 mg/dL (8.5-10.1); CARBON DIOXIDE 27.9 mmol/L (21.0-32.0); CREATININE - SERUM 1.1 mg/dL (0.6-1.3); POTASSIUM - SERUM 3.9 mmol/L (3.5-5.1)
[2019-12-16 18:39] LABS: ALBUMIN 4.3 g/dL (3.4-5.0); BILIRUBIN - TOTAL 0.5 mg/dL (0.2-1.3); PROTEIN - SERUM 7.6 g/dL (6.4-8.2)
[2019-12-16] MEDS ORDERED: AUVI-Q0.3 MG/0.3 IM (18:42)
[2019-12-16] MEDS ORDERED: PREDNISONE50 MG PO (18:42)
[2019-12-16] MEDS ORDERED: BENADRYL50 MG PO (18:42)
[2019-12-16] MEDS ORDERED: MEDROL DOSE PACK4 MG PO (19:34)
[2019-12-16 20:28] VITALS: BP 152/84
== END 2019-12-16 20:28 | disposition home or self-care (01) ==
LOC: D.ER 17:03
PROVIDERS: Family Medicine
DX: T78.40XA Allergy, unspecified, initial encounter (principal); R20.2 Paresthesia of skin; G62.9 Polyneuropathy, unspecified; I10 Essential (primary) hypertension; J44.9 Chronic obstructive pulmonary disease, unspecified

== ENCOUNTER 2019-12-17 15:53 | Inpatient (IN) | payer MEDICARE, OTHER ==
[~2019-12-17] VITALS: Ht 172.7 cm; Wt 106.6 kg
[~2019-12-17 15:53] MED LIST changes: +AUVI-Q0.3 MG/0.3 IM; +BENADRYL50 MG PO; +PREDNISONE50 MG PO
[2019-12-17 20:29] LABS: BASOPHILS 0.1 % (0-2); EOSINOPHILS 0.1 % (0-7); HEMATOCRIT 37.6 % (42.0-54.0); IMMATURE GRANULOCYTES 0.3 % (0-5); LYMPHOCYTES 8.4 % (15-50); MCH 32.7 pg (26.0-34.0); MCHC 34.6 g/dL (31.0-37.0); MCV 94.7 fL (80.0-100.0); MEAN PLATELET VOLUME 8.4 fL (7.4-10.4); MONOCYTES 9.1 % (2-11); PLATELET COUNT 283 10x3/uL (130-400); RBC 3.97 10x6/uL (4.20-6.10); RDW 12.2 % (11.5-14.5)
[2019-12-17 20:37] LABS: WBC 14.9 10x3/uL (4.8-10.8)
[2019-12-17 20:55] LABS: CALC OSMOLALITY 274 mosm/kg (275-300); CALCIUM 9.6 mg/dL (8.5-10.1); CARBON DIOXIDE 25.9 mmol/L (21.0-32.0); CHLORIDE - SERUM 100 mmol/L (98-107); CREATININE - SERUM 1.3 mg/dL (0.6-1.3); GLUCOSE 111 mg/dL (74-106); POTASSIUM - SERUM 3.9 mmol/L (3.5-5.1); SODIUM 136 mmol/L (136-145); eGFR NON AFRICAN AMERICAN 58 mL/min (90-120)
[2019-12-17 21:02] LABS: UREA NITROGEN 19 mg/dL (7-18)
[2019-12-17 21:10] LABS: ALBUMIN 4.6 g/dL (3.4-5.0); ALKALINE PHOSPHATASE 55 U/L (30-120); ALT (SGPT) 71 U/L (10-68); BILIRUBIN - TOTAL 0.55 mg/dL (0.2-1.3); CREATINE KINASE 9878 UL (21-232); PROTEIN - SERUM 7.9 g/dL (6.4-8.2)
[2019-12-17 21:46] LABS: ERYTHROCYTE SEDIMENTATION RATE 10 mm/hr (0-20)
[2019-12-17 22:01] LABS: CKMB 117.9 U/L (0.0-3.6)
[2019-12-17 23:35] VITALS: BP 115/50; BMI 35.8
--- NOTE | 2019-12-18 | NUR ---
PATIENT ARRIVED TO UNIT VIA WHEEL CHAIR. PATIENT ALERT AND ORIENTED. PATIENT APPEARS EASILY EXCITABLE. ANSWERS MOST QUESTIONS APPROPRAITELY. COMPLAINS OF PAIN. PROVIDED EDUCATION ON MEDICATIONS AND RENAL CASE MANAGER. PATIENT VERBALIZES UNDERSTANDING. INCENTIVE SPIROMETER AT BEDSIDE. EDUCATION AND ENCOURAGEMENT PROVIDED. ASSESSMENT PERFORMED, SEE CHART. PROVIDED EDUCATION ON USE OF CALL LIGHT. PATIENT PROVIDES RETURN DEMONSTRATION. DENIES FURTHER NEEDS AT THIS TIME. CALL LIGHT REMAINS CLOSE. BED LOCKED AND LOWERED. CPOC.
--- NOTE | 2019-12-18 01:53 | NUR ---
IV MACHINE BEEPING, WENT TO ASSESS MACHINE AND PATIENT. PATIENT ASKS ONCE AGAIN ABOUT LOCK OUT INTERVAL AND DOSAGE PER 10 MINUTE AVAILABILITY. CELL PHONE ALARM BEGINS SOUNDING, PATIENT STATES HE IS SETTING HIS ALARM FOR EVERY 10 MINUTES TO PRESS MANAGER [employer] BUTTON.
[2019-12-18 04:30] VITALS: BP 158/89
--- NOTE | 2019-12-18 04:33 | NUR ---
PATIENT CONTINUALLY VOMITTING WATER. STOPPEED DILAUDID HEARING AID FITTER AT THIS TIME TO SEE IF IT IS CAUSING PATIENT TO VOMIT.
[2019-12-18 05:17] LABS: BASOPHILS 0 % (0-2); EOSINOPHILS 0 % (0-7); HEMATOCRIT 37.7 % (42.0-54.0); HEMOGLOBIN 12.8 g/dL (13.5-17.5); IMMATURE GRANULOCYTES 0.3 % (0-5); LYMPHOCYTES 5.1 % (15-50); MCH 32.4 pg (26.0-34.0); MCV 95.4 fL (80.0-100.0); MEAN PLATELET VOLUME 8.5 fL (7.4-10.4); MONOCYTES 1.6 % (2-11); PLATELET COUNT 283 10x3/uL (130-400); RBC 3.95 10x6/uL (4.20-6.10); RDW 12.3 % (11.5-14.5)
[2019-12-18 05:29] LABS: WBC 10.1 10x3/uL (4.8-10.8)
[2019-12-18 05:56] LABS: ALBUMIN 4.4 g/dL (3.4-5.0); ALKALINE PHOSPHATASE 55 U/L (30-120); BILIRUBIN - TOTAL 0.46 mg/dL (0.2-1.3); CALC OSMOLALITY 277 mosm/kg (275-300); CALCIUM 8.7 mg/dL (8.5-10.1); CHLORIDE - SERUM 102 mmol/L (98-107); CREATININE - SERUM 1.2 mg/dL (0.6-1.3); GLUCOSE 131 mg/dL (74-106); MAGNESIUM - SERUM 2.1 mg/dL (1.8-2.4); POTASSIUM - SERUM 3.9 mmol/L (3.5-5.1); PROTEIN - SERUM 7.6 g/dL (6.4-8.2); SODIUM 137 mmol/L (136-145); UREA NITROGEN 18 mg/dL (7-18); eGFR NON AFRICAN AMERICAN 64 mL/min (90-120)
[2019-12-18 05:57] LABS: ALT (SGPT) 93 U/L (10-68); CREATINE KINASE 10028 UL (21-232)
--- NOTE | 2019-12-18 07:10 | NUR ---
REC'D IN WALKING ROUNDS EASILY TO AROUSED WHEN NAME IS CALLED. RESP EVEN AND UNLABORED WITH NO DISTRESS NOTED. CAN EXPRESS NEEDS AND WANTS WITH NONE VOICED AT THIS TIME. C/L IN REACH AT BEDSIDE.
[2019-12-18 08:04] LABS: CKMB 132.3 U/L (0.0-3.6)
[2019-12-18 08:54] VITALS: BP 181/82
--- NOTE | 2019-12-18 09:59 | NUR ---
I have reviewed this patient and I concur with the Shift Assessment completed by the Licensed Practical Nurse today this shift.
--- NOTE | 2019-12-18 10:11 | NUR ---
WAS MEDICATED [facility] AT THIS TIME FOR DRY HEAVING AND NAUSEA. PT IS ALSO HAVING HALLUCINATIONS THINKING THAT THE PHONE CORD IS A SNAKE. PT WAS REDIRECTED. AND C/L IN REACH AT BEDSIDE.
--- NOTE | 2019-12-18 10:20 | NUR ---
REC'D CALL BACK FROM RICHARDSON VARGAS WITH ORDERS TO DC DILUADID AND TO START NORCO 5 MG EVERY 6 HRS PRN. PT AND MADE AWARE OF NEW ORDERS. C/L IN REACH AT BEDSIDE.
--- NOTE | 2019-12-18 10:54 | NUR ---
WAS MEDICATED WITH NORCO PER ORDERS AT THIS TIME FOR C/O PAIN. C/L IN REACH AT BEDSIDE.
[2019-12-18 13:05] VITALS: BP 179/82
[2019-12-18 14:12] VITALS: Ht 172.7 cm; Wt 106.6 kg
[2019-12-18 14:49] LABS: APTT 30.2 SECONDS (22.8-39.4); INR 1.11 (0.85-1.17); PROTIME 14.3 SECONDS (11.6-15.0)
--- NOTE | 2019-12-18 15:45 | NUR ---
WAS MEDICATED WITH ATIVAN AT THIS TIME FOR ANXIETY. C/L IN REACH AT BEDSIDE.
[2019-12-18 17:37] VITALS: BP 181/88
--- NOTE | 2019-12-18 19:00 | NUR ---
BEDSIDE REPORT RECEIVED...PT JUST IN HALLWAY IN UNDERWEAR WANTING TO GO HOME. IV PULLED OUT. TELEMETRY PULLED OFF.
--- NOTE | 2019-12-18 19:15 | NUR ---
ATIVAN AND NORCO GIVEN BY DAY SHIFT NURSE.
--- NOTE | 2019-12-18 19:40 | NUR ---
CHIEF CONTROLLER CENTER ASSISTED PT TAKING A SHOWER.
[2019-12-18 22:03] VITALS: BP 169/85
--- NOTE | 2019-12-18 22:07 | NUR ---
GAVE BENADRYL PO AND NORCO PO PER REQUEST FOR SLEEP AND PAIN. WILL MONITOR FOR EFFECTIVENESS.
--- NOTE | 2019-12-18 23:54 | NUR ---
PT PACING AROUND ROOM AND SLAMMING DOORS...ATTEMPTING TO RE-ORIENTATE.
--- NOTE | 2019-12-18 23:57 | NUR ---
ELEVATOR PILOT LIGHT...STILL PACING IN ROOM...SAYS HE DOSN'T WANT TO SLEEP. TOO EARLY FOR ATIVAN.
[2019-12-19] VITALS: BP 111/78
--- NOTE | 2019-12-19 00:08 | NUR ---
PT SCREEMING FROM ROOM....FOUND LYING IN BED WITH FISTS IN THE AIR. ASKED IF HE WAS OK AND HE SAID HE WAS JUST TALKING TO HIMSELF.
--- NOTE | 2019-12-19 04:30 | NUR ---
EMPTIED TRASH FROM ROOM...PT THREW EVERYTHING FROM ROOM THAT WOULD FIT INTO THE TRASH...TELEPHONE, TOWELLS, IV TUBING THAT HE TOOK OFF OF PUMP.
[2019-12-19 05:49] LABS: BASOPHILS 0.1 % (0-2); EOSINOPHILS 0 % (0-7); HEMATOCRIT 37.2 % (42.0-54.0); HEMOGLOBIN 12.5 g/dL (13.5-17.5); IMMATURE GRANULOCYTES 0.4 % (0-5); LYMPHOCYTES 6.7 % (15-50); MCH 32.1 pg (26.0-34.0); MCHC 33.6 g/dL (31.0-37.0); MCV 95.6 fL (80.0-100.0); MEAN PLATELET VOLUME 8.8 fL (7.4-10.4); NEUTROPHILS 84.8 % (40-80); PLATELET COUNT 322 10x3/uL (130-400); RBC 3.89 10x6/uL (4.20-6.10); RDW 12.5 % (11.5-14.5)
[2019-12-19 06:27] LABS: WBC 18.3 10x3/uL (4.8-10.8)
[2019-12-19 06:32] LABS: ALBUMIN 4.2 g/dL (3.4-5.0); BILIRUBIN - TOTAL 0.46 mg/dL (0.2-1.3); CALCIUM 8.8 mg/dL (8.5-10.1); CARBON DIOXIDE 28.9 mmol/L (21.0-32.0); CREATININE - SERUM 1.1 mg/dL (0.6-1.3); MAGNESIUM - SERUM 2.5 mg/dL (1.8-2.4); PROTEIN - SERUM 7.1 g/dL (6.4-8.2)
[2019-12-19 06:34] LABS: ANION GAP 10.2 mmol/L (8-16); POTASSIUM - SERUM 3.1 mmol/L (3.5-5.1)
--- NOTE | 2019-12-19 07:30 | NUR ---
REC'D IN BED AWAKE AND ALERT. RESP EVEN AND UNLABORED WITH NO DISTRESS NOTED. CAN EXPRESS NEEDS AND WANTS. NO C/O NOTED OR VOICED. PT HAS EXHIBITED ANXIETY ON THIS MORNING BUT REFUSE AT THIS TIME TO TAKE PRN ATIVAN. ASSESSMENT COMPLETED. C/L IN REACH AT BEDSIDE.
[2019-12-19 11:03] VITALS: BP 155/77
[2019-12-19 12:48] LABS: CKMB 209.1 U/L (0.0-3.6); CREATINE KINASE 13016 UL (21-232)
--- NOTE | 2019-12-19 12:54 | NUR ---
OT NOTE: PT ALERT AND SITTING UP IN CHAIR FULLY DRESSED. PT QUITE ANIMATED AND CONTINUES TO STATE HOW GREAT HE FEELS. AMBULATED IN ROOM AND THROUGHOUT HALLWAY WITHOUT ANY DIFFICULTY AND NO ASSISTIVE DEVICE. PT REPORTS THAT HE HAS HAD ALL LIQUIDS THIS AM AND HAS NOT VOMITTED. ABLE TO PERFORM SIMPLE SINK HYGIENE WHILE STANDING AT SINK WITHOUT DIFFICULTY. REVIEWED NURSES NOTES AND PT DOING SOME ODD THINGS THROUGHOUT THE EVENING LAST NIGHT. NIMCO MARTINEZ, OTR/L [id number]
--- NOTE | 2019-12-19 14:47 | NUR ---
OT NOTE; PT COMPLETED SIT TO STAND WITH CGA.PT COMPLETED ADL MOB WITH CGA. PT COMPLETED UE AROM AX WITH FUNCTIONAL TASKS. PT IS ALERT AND STATED HE FEELS MUCH BETTER. [phone] THANK YOU,JOYA CRENSHAW
[2019-12-19 15:00] VITALS: BP 151/82
--- NOTE | 2019-12-19 15:09 | NUR ---
WAS MEDICATED WITH ATIVAN PER ORDERS FOR ANXIETY. C/L IN REACH AT BEDSIDE.
[2019-12-19 15:15] VITALS: BP 149/85
--- NOTE | 2019-12-19 15:38 | NUR ---
I have reviewed this patient and I concur with the Shift Assessment completed by the Licensed Practical Nurse today this shift.
[2019-12-19 15:39] LABS: BILIRUBIN NEGATIVE (NEGATIVE); KETONE LARGE mg/dL (NEGATIVE); NITRITE NEGATIVE (NEGATIVE); UROBILINOGEN NORMAL (NORMAL)
[2019-12-19 15:41] LABS: BACTERIA MODERATE /hpf (NEGATIVE); EPITHELIAL CELLS 0-5 /hpf (0-5); RED CELLS - URINE 0-5 /hpf (0-5); WHITE CELLS - URINE OCC /hpf (NEGATIVE)
[2019-12-19 20:00] VITALS: BP 157/84
[2019-12-20] VITALS: BP 149/82
--- NOTE | 2019-12-20 00:11 | NUR ---
I have reviewed this patient and I concur with the Shift Assessment completed by the Licensed Practical Nurse today this shift.
[2019-12-20 04:00] VITALS: BP 146/80
[2019-12-20 05:26] LABS: BASOPHILS 0 % (0-2); EOSINOPHILS 0 % (0-7); HEMATOCRIT 33.2 % (42.0-54.0); HEMOGLOBIN 11.6 g/dL (13.5-17.5); IMMATURE GRANULOCYTES 0.4 % (0-5); LYMPHOCYTES 8.4 % (15-50); MCHC 34.9 g/dL (31.0-37.0); MCV 94.3 fL (80.0-100.0); MEAN PLATELET VOLUME 8.9 fL (7.4-10.4); MONOCYTES 3.9 % (2-11); NEUTROPHILS 87.3 % (40-80); PLATELET COUNT 263 10x3/uL (130-400); RBC 3.52 10x6/uL (4.20-6.10); RDW 12.3 % (11.5-14.5)
[2019-12-20 05:58] LABS: WBC 10.7 10x3/uL (4.8-10.8)
[2019-12-20 06:55] LABS: ALBUMIN 3.6 g/dL (3.4-5.0); ALKALINE PHOSPHATASE 43 U/L (30-120); ALT (SGPT) 177 U/L (10-68); BILIRUBIN - TOTAL 0.46 mg/dL (0.2-1.3); CALC OSMOLALITY 276 mosm/kg (275-300); CARBON DIOXIDE 28.5 mmol/L (21.0-32.0); CHLORIDE - SERUM 103 mmol/L (98-107); GLUCOSE 109 mg/dL (74-106); MAGNESIUM - SERUM 2.4 mg/dL (1.8-2.4); POTASSIUM - SERUM 3.5 mmol/L (3.5-5.1); PROTEIN - SERUM 6.4 g/dL (6.4-8.2); SODIUM 137 mmol/L (136-145); UREA NITROGEN 17 mg/dL (7-18); eGFR NON AFRICAN AMERICAN 79 mL/min (90-120)
[2019-12-20 06:59] LABS: CREATINE KINASE 5123 UL (21-232)
[2019-12-20 09:58] VITALS: BP 144/80
[2019-12-20 13:33] VITALS: BP 145/82
[2019-12-20 18:25] VITALS: BP 160/86
--- NOTE | 2019-12-20 18:45 | NUR ---
I have reviewed this patient and I concur with the Shift Assessment completed by the Licensed Practical Nurse today this shift.
[2019-12-20 20:00] VITALS: BP 146/74
[2019-12-21] VITALS (12 sets, daily range): BP systolic 130–210; BP diastolic 63–112
[2019-12-21 04:28] LABS: BASOPHILS 0 % (0-2); EOSINOPHILS 0.1 % (0-7); HEMATOCRIT 32.5 % (42.0-54.0); IMMATURE GRANULOCYTES 0.5 % (0-5); LYMPHOCYTES 6.1 % (15-50); MCHC 33.8 g/dL (31.0-37.0); MCV 94.5 fL (80.0-100.0); MEAN PLATELET VOLUME 8.8 fL (7.4-10.4); MONOCYTES 10.9 % (2-11); NEUTROPHILS 82.4 % (40-80); PLATELET COUNT 253 10x3/uL (130-400); RBC 3.44 10x6/uL (4.20-6.10); RDW 12.2 % (11.5-14.5); WBC 10.2 10x3/uL (4.8-10.8)
[2019-12-21 05:12] LABS: ALBUMIN 3.3 g/dL (3.4-5.0); ALKALINE PHOSPHATASE 38 U/L (30-120); ALT (SGPT) 158 U/L (10-68); BILIRUBIN - TOTAL 0.35 mg/dL (0.2-1.3); CALC OSMOLALITY 276 mosm/kg (275-300); CALCIUM 7.9 mg/dL (8.5-10.1); CARBON DIOXIDE 31.3 mmol/L (21.0-32.0); CHLORIDE - SERUM 105 mmol/L (98-107); GLUCOSE 99 mg/dL (74-106); MAGNESIUM - SERUM 2.2 mg/dL (1.8-2.4); POTASSIUM - SERUM 3.6 mmol/L (3.5-5.1); SODIUM 138 mmol/L (136-145); UREA NITROGEN 16 mg/dL (7-18); eGFR NON AFRICAN AMERICAN 79 mL/min (90-120)
[2019-12-21 05:21] LABS: CKMB 30.4 U/L (0.0-3.6); CREATINE KINASE 2100 UL (21-232)
--- NOTE | 2019-12-21 06:18 | NUR ---
I have reviewed this patient and I concur with the Shift Assessment completed by the Licensed Practical Nurse today this shift.
--- NOTE | 2019-12-21 11:35 | NUR ---
PATIENT SITTING UP IN CHAIR AFTER SHOWER. NO NEEDS AT THIS TIME. TM
--- NOTE | 2019-12-21 12:39 | NUR ---
Nutrition follow-up: Pt receiving a consistent CHO diet PO intake has been very poor ProcalAmine PPN started @ 50 ml/hr Labs reviewed Wt: 234# Will continue to encourage increased po intake RDN following.
--- NOTE | 2019-12-21 15:23 | CN ---
PATIENT NAME:MARY REBOLLAR MEDICAL RECORD: [id number] : 54 LOCATION:D.MS [facility] ADMIT DATE: 12/17/19 ACCOUNT: [id number] CONSULTING PHYSICIAN: BEATRIZ REZA MD REFERRING PHYSICIAN: VIN ANDRE MD DATE OF CONSULTATION: 12/20/2019 IDENTIFYING DATA: The patient is 69 years old and he was admitted to the hospital on a voluntary basis. CHIEF COMPLAINT: Confusion. HISTORY OF PRESENT ILLNESS: The patient has a very long list of medical problems along with some chronic pain. He is being treated by a pain management clinic. He had some confusion, psychotic symptoms and agitation earlier in this hospitalization. That has now resolved. Taking the longitudinal history and examining him, I suspect that he is likely to be moderately depressed, which is not unusual in patient's who hurt all the time. In addition to this, I suspect that the confusion was associated with polypharmacy. There certainly is no evidence of confusion at this point. His mental status exam is normal and he has no thoughts of harming himself or others. ASSESSMENT: Delirium, resolved. PLAN: The patient is interested in some counseling when he leaves the hospital. I would recommend he be set up with outpatient mental health therapy. 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 He also has the depressive symptoms, I mentioned above. I do have concerns about chronic long-term use of opiates. I do not think they are in anyone's best interest for chronic pain. It is my opinion that they often do more harm than good, leading to addiction and physical and psychological dependence that is associated with an addiction. In addition to this, I do not even think they are very good for chronic pain since there is tolerance to the analgesic effect of the medications. In general, I think it is a bad idea to be mixing narcotics, gabapentin, and Ambien together. It is a cocktail that will certainly cause some confused behavior. I will leave management of his pain to others, but I do think it is a contributing factor to what was observed here. TRANSINT:[id number] Voice Confirmation ID: [id number] DOCUMENT ID: [id number] BEATRIZ REZA MD at 5083 CC: [id number] DICTATION DATE: 12/20/19 2079 I&C TECH: 12/21/19 0120 ADM IN [facility] [address] [place] [id number]
--- NOTE | 2019-12-21 20:00 | NUR ---
PT SITTING UP IN BED WITHOUT DISTRESS, AOX4. FREQUENTLY WALKING IN HALLWAYS. STATES HE IS GETING ANXIOUS AND REQUESTING ATIVAN SOON HE CAN GET IT. WILL GIVE ORDERED. DENIES OTHER NEEDS AT THIS TIME. CL IN REACH, WILL CTM
[2019-12-22 03:49] VITALS: BP 171/85
--- NOTE | 2019-12-22 06:00 | NUR ---
PT UP IN SHOWER AT THIS TIME
[2019-12-22 07:10] LABS: BASOPHILS 0 % (0-2); EOSINOPHILS 0.2 % (0-7); HEMATOCRIT 33.8 % (42.0-54.0); HEMOGLOBIN 11.5 g/dL (13.5-17.5); IMMATURE GRANULOCYTES 1.1 % (0-5); LYMPHOCYTES 12.9 % (15-50); MCH 32.3 pg (26.0-34.0); MCV 94.9 fL (80.0-100.0); MONOCYTES 9.7 % (2-11); NEUTROPHILS 76.1 % (40-80); PLATELET COUNT 281 10x3/uL (130-400); RBC 3.56 10x6/uL (4.20-6.10); RDW 12.5 % (11.5-14.5); WBC 10.5 10x3/uL (4.8-10.8)
[2019-12-22 07:20] VITALS: BP 178/96
--- NOTE | 2019-12-22 07:42 | NUR ---
ALERT AND ORIENTED. LUNGS CLEAR BILATERALLY. HEART SOUNDS S1 AND S2 HEARD IN ALL FIELD.S BOWEL SOUNDS ACTIVE X 4. IV TO RFA PATENT WITHOUT REDNESS. DENIES NEEDS. BED LOW. CALL CASAREZ AND PERSONAL ITEMS IN REACH. WILL CONTINUE TO MONITOR.
[2019-12-22 07:45] LABS: ALBUMIN 3.8 g/dL (3.4-5.0); ALKALINE PHOSPHATASE 42 U/L (30-120); ALT (SGPT) 164 U/L (10-68); BILIRUBIN - TOTAL 0.41 mg/dL (0.2-1.3); CALC OSMOLALITY 282 mosm/kg (275-300); CALCIUM 8.1 mg/dL (8.5-10.1); CARBON DIOXIDE 32.1 mmol/L (21.0-32.0); CHLORIDE - SERUM 104 mmol/L (98-107); CREATININE - SERUM 0.9 mg/dL (0.6-1.3); GLUCOSE 95 mg/dL (74-106); MAGNESIUM - SERUM 2.2 mg/dL (1.8-2.4); POTASSIUM - SERUM 3.2 mmol/L (3.5-5.1); PROTEIN - SERUM 6.6 g/dL (6.4-8.2); SODIUM 142 mmol/L (136-145); UREA NITROGEN 13 mg/dL (7-18); eGFR NON AFRICAN AMERICAN 89 mL/min (90-120)
[2019-12-22 07:46] LABS: CKMB 13.1 U/L (0.0-3.6); CREATINE KINASE 937 UL (21-232)
[2019-12-22 10:30] VITALS: BP 170/86
--- NOTE | 2019-12-22 11:22 | NUR ---
SAM BAI PAGED TO SEE ABOUT RESTARTING PATIENT'S HOME LISINOPRIL. BP 170/86. WAITIING CALL BACK.
[2019-12-22] MEDS ORDERED: ANUSOL-HC 2.5%30 GM RC (15:34)
[2019-12-22] MEDS ORDERED: PREDNISONE10 MG PO (15:35)
--- NOTE | 2019-12-22 16:16 | MORECARE ---
CASE MANAGEMENT DISCHARGE SUMMARY PATIENT: MARY REBOLLAR UNIT: [id number] ADM DATE: 12/17/19 AGE: 69 : 52 SEX: M ROOM/BED: D.2222 AUTHOR: SENA,DOC PHYSICIAN: REFERRING PHYSICIAN: VIN ANDRE MD DATE OF SERVICE: 12/22/19 Discharge Plan Patient Name: MARY REBOLLAR Facility: [facility]:[place] : 1950 Planned Disposition: Home with Home Health Anticipated Discharge Date: Discharge Date: Expected LOS: Initial Reviewer: [id number] Initial Review Date: 12/17/2019 Generated: 12/22/19 5:15 pm Comments DCP- Discharge Planning Updated by [id number]: Ev Best on 12/22/19 3:[address] Patient Name: MARY REBOLLAR Admission Status: ER Accout number: [id number] Admission Date: 12-17-2019 : 1950 Admission Diagnosis:RHABDOMYOLYSIS Attending: VIN GREEN Current LOS: 5 Anticipated DC Date: Planned Disposition: Home with Home Health Primary Insurance: MEDICARE A & B Discharge Planning Comments: CM met with patient at bedside after explaining CM role and obtaining verbal consent. CM discussed availability / needs of home health, REHAB and medical equipment. WOULD LIKE WITH [facility] FOR MED BOX MANAGEMENT. DELORES SIGNED AND REFERRAL FAXED TO [facility]. PATIENT GIVEN BROCHURE FOR [facility] AND [facility] FOR FOLLOW UP. IMM SIGNED. PATIENT ANTICIPATE DC TODAY. Director Search Marketing Strategies: Ev Best DCPIA - Discharge Planning Initial Assessment Updated by [email or web address]: Ev Best on 12/22/19 4:13 pm * Is the patient Alert and Oriented? Yes * PCP ELVIS * Preadmission Environment Home with Family * ADLs Independent * Other Equipment 02, NEBS WITH [facility] PATIENT. * Community resources currently utilized None * Additional services required to return to the preadmission environment? No * Can the patient safely return to the preadmission environment? Yes * Has this patient been hospitalized within the prior 30 days at any hospital? No External Providers External Provider: [facility] Next Contact Date: Service Request Date: Service Type: Resolution: Reviewer: Comments: Patient Name: MARY REBOLLAR Page [phone] at 1616 All edits/amendments must be made on the electronic document DICTATION DATE: 12/22/191614 LOG COOKER: ADRIAN 12/22/191614 RPT#: [id number] DC DATE: STATUS: ADM IN [facility] [address] [place] [address] END OF REPORT
--- NOTE | 2019-12-22 16:25 | NUR ---
IV REMOVED FROM RFA WITH TIP INTACT FOR DISCHARGE.
--- NOTE | 2019-12-22 16:43 | NUR ---
DISCHARGE EDUCATION PROVIDED BOTH WRITTEN AND VERBAL. VERBALIZED UNDERSTANDING. REQUESTING ATIVAN FOR OVER WEEKEND AND STATES WILL SEE PCP WEDNESDAY. SPOKE WITH SAM BAI WHO STATES WILL TALK TO DR SCHOFIELD. SAM AND STANDING OUTSIDE PATIENT ROOM NOW. PATIENT WAITING RIDE.
[2019-12-22] MEDS ORDERED: ATIVAN0.5 MG PO (16:52)
--- NOTE | 2019-12-22 17:12 | NUR ---
PATIENT GIVEN RX FOR ATIVAN FOR WEEKEND BY MD ON UNIT. DENIES FURTHER NEEDS. DC HOME WITH WITH ALL BELONGINGS.
--- NOTE | 2019-12-23 08:45 | MORECARE ---
CASE MANAGEMENT DISCHARGE SUMMARY PATIENT: MARY REBOLLAR UNIT: [id number] ADM DATE: 12/17/19 AGE: 69 : 52 SEX: M ROOM/BED: D.2222 AUTHOR: SENA,DOC PHYSICIAN: REFERRING PHYSICIAN: VIN ANDRE MD DATE OF SERVICE: 12/23/19 Discharge Plan Patient Name: MARY REBOLLAR Facility: [facility]:[place] : 1950 Planned Disposition: Home with Home Health Anticipated Discharge Date: Discharge Date: 12/22/2019 Expected LOS: Initial Reviewer: [email or web address] Initial Review Date: 12/17/2019 Generated: 12/23/19 9:44 am Comments DCP- Discharge Planning Updated by [email or web address]: Wendy Joseph on 12/23/19 7:[address] CM received call from Alisha at [facility] requesting home health needs. Alisha stated the next available opening was Wednesday. Alisha stated they will need the order for home health services faxed. JESSICA refaxed the order as requested. Wendy Joseph MSN,RN,MC DCP- Discharge Planning Updated by [id number]: Ev Best on 12/22/19 3:[address] Patient Name: MARY REBOLLAR Admission Status: ER Accout number: [id number] Admission Date: 12-17-2019 : 1950 Admission Diagnosis:RHABDOMYOLYSIS Attending: VIN GREEN Current LOS: 5 Anticipated DC Date: Planned Disposition: Home with Home Health Primary Insurance: MEDICARE A & B Discharge Planning Comments: CM met with patient at bedside after explaining CM role and obtaining verbal consent. CM discussed availability / needs of home health, REHAB and medical equipment. WOULD LIKE HH WITH [facility] FOR MED BOX MANAGEMENT. DELORES SIGNED AND REFERRAL FAXED TO [facility]. PATIENT GIVEN BROCHURE FOR [facility] AND [facility] FOR FOLLOW UP. IMM SIGNED. PATIENT ANTICIPATE DC TODAY. Pre K Special Education Teacher: Ev Best DCPIA - Discharge Planning Initial Assessment Updated by [email or web address]: Ev Best on 12/22/19 4:13 pm * Is the patient Alert and Oriented? Yes * PCP ELVIS * Preadmission Environment Home with Family * ADLs Independent * Other Equipment 02, NEBS WITH [facility] PATIENT. * Community resources currently utilized None * Additional services required to return to the preadmission environment? No * Can the patient safely return to the preadmission environment? Yes * Has this patient been hospitalized within the prior 30 days at any hospital? No Coverage Notice Reviewer: [id number] Kelly Best Notice Issued Date-Time: 12/22/2019 16:15 Notice Type: IM Discharge Notice Notice Delivered To: Relationship to Patient: Manager Editorial Name: Delivery Method: - Cindy Days: Prior Verbal Notification: Recipient Understood Notice: Recipient Signature: Med Rec Note Co-signed by Attending: Coverage Notice Comment: Reviewer: [email or web address] Kelly Best Notice Issued Date-Time: 12/22/2019 16:15 Notice Type: Patient Choice Letter Notice Delivered To: Relationship to Patient: Manager Editorial Name: Delivery Method: - Cindy Days: Prior Verbal Notification: Recipient Understood Notice: Recipient Signature: Med Rec Note Co-signed by Attending: Coverage Notice Comment: FARSHAD Last DP export: 12/22/19 3:16 p Patient Name: MARY REBOLLAR Page [phone] at 0845 All edits/amendments must be made on the electronic document DICTATION DATE: 12/23/19843 RELIABILITY ENGINEER: ADRIAN 12/23/1942 RPT#: [id number] DC DATE:12/22/19 STATUS: DIS IN [facility] [address] [place] [address] END OF REPORT
--- NOTE | 2019-12-25 07:59 | MORECARE ---
CASE MANAGEMENT DISCHARGE SUMMARY PATIENT: MARY REBOLLAR UNIT: [id number] ADM DATE: 12/17/19 AGE: 69 : 52 SEX: M ROOM/BED: D.2222 AUTHOR: SENA,DOC PHYSICIAN: REFERRING PHYSICIAN: VIN ANDRE MD DATE OF SERVICE: 12/25/19 Discharge Plan Patient Name: MARY REBOLLAR Facility: [facility]:[place] : 1950 Planned Disposition: Home with Home Health Anticipated Discharge Date: Discharge Date: 12/22/2019 Expected LOS: Initial Reviewer: [id number] Initial Review Date: 12/17/2019 Generated: 12/25/19 8:58 am Comments DCP- Discharge Planning Updated by [id number]: Wendy Joseph on 12/23/19 7:[address] CM received call from Alisha at [facility] requesting home health needs. Alisha stated the next available opening was Wednesday. Alisha stated they will need the order for home health services faxed. JESSICA refaxed the order as requested. Wendy Joseph MSN,RN,MC DCP- Discharge Planning Updated by [email or web address]: Ev Best on 12/22/19 3:[address] Patient Name: MARY REBOLLAR Admission Status: ER Accout number: [id number] Admission Date: 12-17-2019 : 1950 Admission Diagnosis:RHABDOMYOLYSIS Attending: VNI GREEN Current LOS: 5 Anticipated DC Date: Planned Disposition: Home with Home Health Primary Insurance: MEDICARE A & B Discharge Planning Comments: CM met with patient at bedside after explaining CM role and obtaining verbal consent. CM discussed availability / needs of home health, REHAB and medical equipment. WOULD LIKE HH WITH [facility] FOR MED BOX MANAGEMENT. DELORES SIGNED AND REFERRAL FAXED TO [facility]. PATIENT GIVEN BROCHURE FOR [facility] AND [email or web address] [facility] FOR FOLLOW UP. IMM SIGNED. PATIENT ANTICIPATE DC TODAY. Sliver Lap Machine Tender: Ev Best DCPIA - Discharge Planning Initial Assessment Updated by [email or web address]: Ev Best on 12/22/19 4:13 pm * Is the patient Alert and Oriented? Yes * PCP ELVIS * Preadmission Environment Home with Family * ADLs Independent * Other Equipment 02, NEBS WITH [facility] PATIENT. * Community resources currently utilized None * Additional services required to return to the preadmission environment? No * Can the patient safely return to the preadmission environment? Yes * Has this patient been hospitalized within the prior 30 days at any hospital? No Coverage Notice Reviewer: [email or web address] Kelly Best Notice Issued Date-Time: 12/22/2019 16:15 Notice Type: IM Discharge Notice Notice Delivered To: Relationship to Patient: Graduate Student Instructor Name: Delivery Method: - Cindy Days: Prior Verbal Notification: Recipient Understood Notice: Recipient Signature: Med Rec Note Co-signed by Attending: Coverage Notice Comment: Reviewer: [id number] Kelly Best Notice Issued Date-Time: 12/22/2019 16:15 Notice Type: Patient Choice Letter Notice Delivered To: Relationship to Patient: Graduate Student Instructor Name: Delivery Method: - Cindy Days: Prior Verbal Notification: Recipient Understood Notice: Recipient Signature: Med Rec Note Co-signed by Attending: Coverage Notice Comment: FARSHAD Last DP export: 12/23/19 7:45 a Patient Name: MARY REBOLLAR Page [phone] at 0759 All edits/amendments must be made on the electronic document DICTATION DATE: 12/25/19 0758 EGG PRODUCER: ADRIAN 12/25/19 0758 RPT#: [id number] DC DATE:12/22/19 STATUS: DIS IN [facility] [address] [place] [address] END OF REPORT
== END 2019-12-22 17:13 | disposition home health service (06) | DRG 558 ==
LOC: D.ER 15:53 → D.MS 22:16
PROVIDERS: Family Medicine; ADMIT Family Medicine Adult Medicine; ATTEND Family Medicine Adult Medicine
DX: M62.82 Rhabdomyolysis (principal); J96.11 Chronic respiratory failure with hypoxia; D64.9 Anemia, unspecified; Z91.81 History of falling; I10 Essential (primary) hypertension; I48.91 Unspecified atrial fibrillation; G62.9 Polyneuropathy, unspecified; J44.9 Chronic obstructive pulmonary disease, unspecified; G47.33 Obstructive sleep apnea (adult) (pediatric); J45.909 Unspecified asthma, uncomplicated; N40.0 Benign prostatic hyperplasia without lower urinary tract symptoms; G47.00 Insomnia, unspecified; R41.0 Disorientation, unspecified

== ENCOUNTER 2020-07-25 05:58 | Day surgery (SDC) | payer MEDICARE, OTHER ==
[~2020-07-25] VITALS: Ht 172.7 cm; Wt 102.3 kg
[~2020-07-25 05:58] MED LIST changes: +ANUSOL-HC 2.5%30 GM RC; +ATIVAN0.5 MG PO; +PREDNISONE10 MG PO; +PRINIVIL20 MG PO
[2020-07-25 06:47] LABS: CALC OSMOLALITY 278 mosm/kg (275-300); CALCIUM 9.4 mg/dL (8.5-10.1); CARBON DIOXIDE 30.6 mmol/L (21.0-32.0); CHLORIDE - SERUM 102 mmol/L (98-107); GLUCOSE 105 mg/dL (74-106); POTASSIUM - SERUM 4.2 mmol/L (3.5-5.1); SODIUM 140 mmol/L (136-145); UREA NITROGEN 13 mg/dL (7-18); eGFR NON AFRICAN AMERICAN 79 mL/min (90-120)
[2020-07-25 06:49] LABS: HEMATOCRIT 37.7 % (42.0-54.0); HEMOGLOBIN 12.9 g/dL (13.5-17.5); MCH 32.4 pg (26.0-34.0); MCHC 34.2 g/dL (31.0-37.0); MCV 94.7 fL (80.0-100.0); RBC 3.98 10x6/uL (4.20-6.10); RDW 12.1 % (11.5-14.5); WBC 4.6 10x3/uL (4.8-10.8)
[2020-07-25 07:29] VITALS: Ht 172.7 cm; Wt 102.3 kg
--- NOTE | 2020-07-25 09:30 | NUR ---
DC INSTRUCTIONS GIVEN WITH SPOUSE AT BEDSIDE. VERBALIZED UNDERSTANDING. DR. MÉNDEZ TO BEDSIDE TO DISCUSS FINDINGS. 950 PIV DC'D, PT GETTING DRESSED 1000 PT DC'D VIA WC, ACCOMPANIED BY ABHI TO POV. ALL BELONGINGS WITH PT/SPOUSE.
--- NOTE | 2020-07-25 16:57 | OP ---
PATIENT NAME: MARY REBOLLAR MEDICAL RECORD: [id number] :[birth year] LOCATION:[facility] ADMISSION DATE: SURGEON: HÉCTOR MÉNDEZ MD DATE OF OPERATION: 07/25/2020 PROCEDURE: Upper endoscopy. PREOPERATIVE DIAGNOSIS: Dysphagia. MEDICATION: Propofol per anesthesia. DESCRIPTION OF PROCEDURE: Upper endoscopy was performed. The endoscope was advanced through the mouth and advanced to the second part of the duodenum. The proximal and mid esophagus were normal. In the distal esophagus were exudates consistent with esophagitis. In the gastric body was erythema consistent with gastritis. Random gastric biopsies were taken. The duodenum was normal. The scope was withdrawn. Into the GE junction, the identified esophagitis with mild esophageal stricture was noted. An 18, 19, 20 mm balloon was used for dilation. The patient tolerated the procedure well. FINAL DIAGNOSES: Esophagitis with mild esophageal stricture. This was dilated with an 18, 19, 20 mm balloon. Gastritis, biopsies taken. Duodenum normal. PLAN: Check histology results. Advance diet. Return to GI office for followup. This patient is on an H2 [place]. I will change this to Protonix and evaluate if this helps his symptoms. TRANSINT:[id number] Voice Confirmation ID: [id number] DOCUMENT ID: [id number] HÉCTOR MÉNDEZ MD at 1657 CC: [id number] DICTATION DATE: 07/25/20904 AUTO BUMPER MECHANIC: 07/25/20 1113 [facility] 07/25/20 [id number] [place] [address]
== END 2020-07-25 10:00 | disposition home or self-care (01) ==
LOC: D.OPS 05:58
PROVIDERS: Anesthesiology; ATTEND Internal Medicine Gastroenterology
DX: R13.10 Dysphagia, unspecified (principal); K20.90 Esophagitis, unspecified without bleeding; K22.2 Esophageal obstruction; K29.70 Gastritis, unspecified, without bleeding; R11.0 Nausea; R10.13 Epigastric pain; R10.32 Left lower quadrant pain; Z86.010 Personal history of colon polyps; R19.4 Change in bowel habit